=== PATIENT | female | born 2000 | race Hispanic/Latino ===

== ENCOUNTER 2020-02-25 11:13 | Emergency (ER) | payer SELFPAY ==
[~2020-02-25] VITALS: Ht 157.5 cm; Wt 56.8 kg
[2020-02-25] MEDS ORDERED: AMOXICILLIN875 MG PO (12:28)
[2020-02-25 12:35] VITALS: BP 128/77
--- NOTE | 2020-02-27 13:33 | NUR ---
Notified patient of + Covid results. Advised patient to quarantine at home umtil the [facility] contacts her with further instructions.Patient denies any fever or SOB. Patient c/o inability to taste or smell. Advised patient to return to ED with difficulty breathing or other urgent needs. Patient verbalized understanding.
== END 2020-02-25 12:35 | disposition home or self-care (01) | DRG 179 ==
LOC: ED 11:13
DX: U07.1 COVID-19 (principal)